=== PATIENT | male | born 1945 | race Caucasian/White ===

== ENCOUNTER 2024-11-13 17:50 | Emergency (ER) | payer MEDICARE, SELFPAY ==
[2024-11-13] VITALS (12 sets, daily range): BP systolic 129; BP diastolic 80; PULSE 70–93; RESP 32; TEMP 36.2; O2SAT 90–100; BMI 29.5
--- NOTE | 2024-11-13 18:24 | CRLHL7_ITS ---
For Patients: As a result of the Century Cures Act, medical imaging exams and procedure reports are released immediately into your electronic medical record. You may view this report before your referring provider. If you have questions, please contact your health care provider. INDICATION: lateral hip pain multiple falls, known prostate bone mets. TECHNIQUE: CT right hip without contrast. COMPARISON: None. FINDINGS: Bones: Diffuse heterogeneous sclerosis of all visualized bones, compatible with the reported metastatic disease. In the greater trochanter, there is a partial-thickness linear lucency extending from the anterior margin subjacent to the cortex. No other findings to suggest an acute fracture or traumatic subluxation. Joints: Moderate right hip joint arthrosis. Soft tissues: Within the right lateral gluteal glenn musculature there is moderate volume heterogeneous hyperdense material, compatible with blood products. IMPRESSION: 1. Thin linear lucency along the anterior margin of the right greater trochanter may reflect a minimally displaced acute cortical fracture. 2. Moderate volume intramuscular hematoma in the right lateral gluteus glenn musculature. Please note that all CT scans at this facility use dose modulation, iterative reconstruction, and/or weight-based dosing when appropriate to reduce radiation dose to as low as reasonably achievable. Dictated by Gonsalo Cutler MD @ 11/13/2024 8:16:23 PM (Electronically Signed)
--- NOTE | 2024-11-13 18:25 | CRLHL7_ITS ---
For Patients: As a result of the Century Cures Act, medical imaging exams and procedure reports are released immediately into your electronic medical record. You may view this report before your referring provider. If you have questions, please contact your health care provider. INDICATION: FALL, MULTIPLE FALLS, KNOWN PROSTATE BONE METS TECHNIQUE: Non-contrast CT of the head is submitted. COMPARISON: None. FINDINGS: Mild diffuse parenchymal volume loss with commensurate ex vacuo dilatation of the ventricles and sulci. There are nonspecific low attenuation white matter changes consistent with chronic microvascular disease. No sign of mass, hemorrhage, or midline shift. The visualized paranasal sinuses and mastoid air cells are essentially clear. The visualized orbits are grossly unremarkable. No skull fractures. Diffuse sclerosis of the skull base and visualized mandibles, compatible with the reported metastatic disease. IMPRESSION: No acute intracranial findings. Please note that all CT scans at this facility use dose modulation, iterative reconstruction, and/or weight-based dosing when appropriate to reduce radiation dose to as low as reasonably achievable. Dictated by Gonsalo Cutler MD @ 11/13/2024 8:07:12 PM (Electronically Signed)
--- NOTE | 2024-11-13 18:25 | CRLHL7_ITS ---
For Patients: As a result of the Century Cures Act, medical imaging exams and procedure reports are released immediately into your electronic medical record. You may view this report before your referring provider. If you have questions, please contact your health care provider. INDICATION: FALL, MULTIPLE FALLS, KNOWN PROSTATE BONE METS. TECHNIQUE: CT cervical spine without contrast. COMPARISON: None. FINDINGS: Vertebrae: No evident acute fracture or traumatic subluxation. Diffuse sclerosis throughout the entire cervical spine, compatible with the reported metastases. Discs and facet joints: There are diffuse degenerative changes in the disc spaces and facet joints. Extraspinal findings: No acute findings. Partially visualized heterogeneous left thyroid gland parenchyma with a hypodense nodule that measures at least 2.7 cm. IMPRESSION: 1. No sign of acute injury. 2. Diffuse bony sclerosis throughout the cervical vertebrae, compatible with the reported metastatic disease. 3. Multilevel degenerative spondylosis. Please note that all CT scans at this facility use dose modulation, iterative reconstruction, and/or weight-based dosing when appropriate to reduce radiation dose to as low as reasonably achievable. Dictated by Gonsalo Cutler MD @ 11/13/2024 8:02:58 PM (Electronically Signed)
--- NOTE | 2024-11-13 19:15 | ED_ITS ---
HPI - Fall General Date Seen: 11/13/24 Chief Complaint: Fall/Minor Trauma Stated Complaint: fell and hurt right hip Time Seen by Provider: 11/13/24 18:06 Source: patient and family Mode of arrival: ambulatory Limitations: no limitations History of Present Illness HPI Narrative: Patient is an 79-year-old male presenting to the emergency department with his daughter for right hip pain. He states he previously was walking normal up until his discharge from [facility] for sepsis on 10/26/2024. Since then he has fallen twice and has been requiring to use his walker whenever he w alks since his discharge. They initially tried to tell him to come in 1st time he fell but he refused. His last fall was about 1 week ago. The pain in his right hip has continued in due to that finally decided to come in. Does have a history of prostate cancer with metastasis to the bone but states the most recent CTs have shown no further involvement of the bone. Is on a blood thinner and does admit to hitting his head last week when he fell. Denies a headache, vision changes, weakness, numbness, chest pain, shortness of breath, abdominal pain. All his pain right now is in his right hip in the lateral aspect. No other concerns noted. Related Data Home Medications ?Medication ?Instructions ?Recorded ?Confirmed Citracal plus D 11/13/24 Lopressor 11/13/24 Senokot 11/13/24 Zofran 11/13/24 acetaminophen 11/13/24 amlodipine 11/13/24 aspirin 11/13/24 atorvastatin 11/13/24 bisacodyl 11/13/24 cholecalciferol (vitamin D3) 11/13/24 clopidogrel 11/13/24 folic acid 11/13/24 gabapentin 11/13/24 glipizide 11/13/24 metformin 11/13/24 paroxetine HCl 11/13/24 senna 11/13/24 tramadol 11/13/24 Allergies Allergy/AdvReac Type Severity Reaction Status Date / Time No Known Drug Allergies Allergy Verified 11/13/24 18:05 Review of Systems Status of ROS: Reports: 10 or more systems reviewed and unremarkable except as noted in History and below PFSH PFSH Social History How often do you have a drink containing alcohol: never AUDIT-C Alcohol total score: 0 Exam Narrative: Exam Narrative: Const: Well-nourished, Well-developed, in mild distress Eyes: PERRL, no conjunctival injection, and symmetrical lids HENT: Atraumatic external nose and ears. Moist mucous membranes. Neck: Symmetric, trachea midline, No thyromegaly. CVS: RRR, No murmurs or gallops. Peripheral pulses 2+ and equal in all extremities RESP: Unlabored respiratory effort. Clear to auscultation bilaterally. GI: Nontender/Nondistended, No rebound or guarding. MSK:Extremities w/o deformity, Normal Active ROM, tenderness to palpation of right hip at about the greater trochanter. Diffuse bruising noted to the right hip with tenderness associated with areas of bruising. No midline cervical tenderness Skin: Warm, Dry. No rashes or lesions. Neuro: Normal Muscle tone, No focal neurological deficits. Psych: Awake, Alert, & Oriented x3. Appropriate mood and affect. Const: Vital Signs, click to edit/add: Vital Signs - 24 hr 11/13/24 18:00 11/13/24 18:18 11/13/24 18:30 Temperature 97.2 F L Pulse Rate 87 82 Pulse Rate [Pulse Oximeter] 70 Respiratory Rate 32 H Blood Pressure [Ri ght Upper Arm] 129/80 Pulse Oximetry 98 90 99 Oxygen Delivery Me thod Room Air 11/13/24 18:45 11/13/24 19:01 11/13/24 19:16 Temperature Pulse Rate 83 92 84 Pulse Rate [Pulse Oximeter] Respiratory Rate Blood Pressure [Ri ght Upper Arm] Pulse Oximetry 100 99 96 Oxygen Delivery Me thod 11/13/24 19:30 11/13/24 19:45 11/13/24 20:00 Temperature Pulse Rate 91 88 84 Pulse Rate [Pulse Oximeter] Respiratory Rate Blood Pressure [Ri ght Upper Arm] Pulse Oximetry 98 96 96 Oxygen Delivery Me thod 11/13/24 20:15 Temperature Pulse Rate 83 Pulse Rate [Pulse Oximeter] Respiratory Rate Blood Pressure [Ri ght Upper Arm] Pulse Oximetry 100 Oxygen Delivery Me thod Course Vital Signs Vital signs: Initial Vital Signs Temperature 97.2 F L 11/13/24 18:00 Temperature Source Temporal Artery Scan 11/13/24 18:00 Pulse Rate 70 11/13/24 18:00 Respiratory Rate 32 H 04/22/25 18:00 Blood Pressure 129/80 11/13/24 18:00 Blood Pressure Mean 96 11/13/24 18:00 Blood Pressure Position Supine 11/13/24 18:00 Pulse Oximetry 98 11/13/24 18:00 Oxygen Delivery Method Room Air 11/13/24 18:00 Vital Signs Temperature 97.2 F L 11/13/24 18:00 Pulse Rate 70 11/13/24 18:00 Respiratory Rate 32 H 11/13/24 18:00 Blood Pressure 129/80 11/13/24 18:00 Pulse Oximetry 98 11/13/24 18:00 Oxygen Delivery Method Room Air 11/13/24 18:00 Temperature 97.2 F L 11/13/24 18:00 Pulse Rate 83 11/13/24 20:15 Respiratory Rate 32 H 11/13/24 18:00 Blood Pressure 129/80 11/13/24 18:00 Pulse Oximetry 100 11/13/24 20:15 Oxygen Delivery Method Room Air 11/13/24 18:00 MDM - Fall MDM Narrative Medical decision making narrative: Patient is an 79-year-old male presenting to the emergency department after a fall that occurred 1 week ago. Despite it occurring 1 week ago do think it is important do CT scan his head and cervical spine to make sure there are no occult injuries considering he is on blood thinners. They are agreeable to this. His right hip pain is right over the greater trochanter and could just be a bursitis but with his history of the bone Mets, despite no history a of it being in his hip, I do think it is beneficial do a CT scan to rule out any small fractures. They are agreeable to this plan. CT scan of neck and head showed no acute concerning abnormalities. They did see the bone Mets. CT scan hip shows a very faint lucency through where his pain is but could be a fracture. It is minimally displaced if there is a fracture. He is also having moderate volume intramuscular hematoma the right lateral gluteus glenn muscle. This does not seem to be bothering him as much as the hip. His daughter does state that the bruising has improved significantly. It is unlikely that is still actively bleeding. He can follow-up with orthopedics about this. I did speak to the on-call orthopedic provider and she is aware. For pain management I will provide him oxycodone but I did explain to him that it does increase his fall risk. Him and his daughter state they understand. He will be discharged. Imaging Data CT scan head: Attestation: I have reviewed the pertinent imaging results. Radiologist's impression: No acute intracranial findings. Please note that all CT scans at this facility use dose modulation, iterative reconstruction, and/or weight-based dosing when appropriate to reduce radiation dose to as low as reasonably achievable. Dictated by Gonsalo Cutler MD @ 11/13/2024 8:07:[address] scan cervical spine : Attestation: I have reviewed the pertinent imaging results. Radiologist's impression: 1. No sign of acute injury. 2. Diffuse bony sclerosis throughout the cervical vertebrae, compatible with the reported metastatic disease. 3. Multilevel degenerative spondylosis. Please note that all CT scans at this facility use dose modulation, iterative reconstruction, and/or weight-based dosing when appropriate to reduce radiation dose to as low as reasonably achievable. Dictated by Gonsalo Cutler MD @ 11/13/2024 8:02:[address] scan right hip: Attestation: I have reviewed the pertinent imaging results. Radiologist's impression: 1. Thin linear lucency along the anterior margin of the right greater trochanter may reflect a minimally displaced acute cortical fracture. 2. Moderate volume intramuscular hematoma in the right lateral gluteus glenn musculature. Please note that all CT scans at this facility use dose modulation, iterative reconstruction, and/or weight-based dosing when appropriate to reduce radiation dose to as low as reasonably achievable. Dictated by Gonsalo Cutler MD @ 11/13/2024 8:16:23 PM Discharge Plan Discharge Clinical Impression: Closed fracture of greater trochanter of right femur, Hematoma Patient Disposition: Home, Self-Care Condition: Stable Instructions: Hip Fracture (ED), Hematoma (ED) Additional Instructions: You can walk on your hip as tolerated. There does appear to be a small nondisplaced fracture that is nonsurgical. Follow-up with [facility]. Call them at . While taking the oxycodone make sure to get up slowly as it increases your fall risk. You can continue to take ibuprofen and Tylenol Activity Level: No Restrictions Prescriptions: No Action acetaminophen amlodipine aspirin atorvastatin bisacodyl Citracal plus D cholecalciferol (vitamin D3) clopidogrel folic acid gabapentin glipizide metformin Lopressor Zofran paroxetine HCl senna Senokot tramadol Follow Up/Referrals: Provider,Not a Local [Primary Care Provider] - Stand Alone Forms: [employer] Info Instructions
--- OUTSIDE RECORDS SUMMARY | 2024-11-13 19:30 | XMS_ITS | Clinical Summary ---
Author Organization [employer] [facility] Address [address] [place] [id number] Care Team Providers Care Communications Tower Technician Name Role Phone Sanya Padilla MD Primary Care Provider Emmanuelle Smith PsyD, LP Unavailable [phone] [facility] Unavailable Emmanuelle Soto BUTTON BREAKER Unavailable Daija Santillan MD Unavailable [phone] Adam, Александр Lockhart TRANSMISSION REPAIRER Unavailable [phone] Emily Souza Unavailable Dilcia Segal STAFF REGISTERED NURSE Unavailable Allergies No known active allergies Medications aspirin enteric coated 81 mg tabletIndicatio ns:myocardial infarction prevention Take 1 tablet by mouth once daily with a meal. 0 013 Active folic acid 1 mg tabletIndicatio ns:supplement Take 1 mg by mouth once daily. Active atorvastatin (LIPITOR) 40 mg tabletIndicatio ns:hyperlipidem ia Take 1 Tablet (40 mg) by mouth once daily. 90 Tablet 3 024 Active clopidogreL (PLAVIX) 75 mg tabletIndicatio ns:myocardial infarction prevention Take 1 Tablet (75 mg) by mouth once daily. 90 Tablet 3 024 Active metFORMIN (GLUCOPHAGE XR) 500 mg Extended-Releas e tabletIndicatio ns:type 2 diabetes mellitus TAKE 3 TABLETS BY MOUTH ONCE DAILY WITH EVENING MEAL 270 Tablet 1 Active glipiZIDE extended-releas e (GLUCOTROL XL) 2.5 mg Extended-Releas e tabletIndicatio ns:type 2 diabetes mellitus TAKE 1 TABLET BY MOUTH ONCE DAILY BEFORE A MEAL 90 Tablet Active metoprolol tartrate (LOPRESSOR) 50 mg tabletIndicatio ns:Benign essential HTN Take 0.5 Tablets (25 mg) by mouth two times daily. HOLD for SBP <120 or HR < 60 Active sennosides-docu sate (SENOKOT S) (8.6-50 mg) tabletIndicatio ns:Constipation , unspecified constipation type Take 2 Tablets by mouth 2 times daily if needed for Constipation. Active calcium citrate-vitamin D3, 315 mg-250 units, (Citracal + D) 315 mg-6.25 mcg (250 unit) tab tablet Take 1 Tablet by mouth two times daily with meals. Active ondansetron (ZOFRAN) 4 mg tablet Take 1 Tablet (4 mg) by mouth every 8 hours if needed for Nausea/Vomiting. Active cholecalciferol (Vitamin D) 1,000 unit capsule Take 1 Capsule (1,000 units) by mouth once daily. Active acetaminophen 500 mg tablet Take 2 Tablets (1,000 mg) by mouth two times daily. May also take daily PRN pain Max acetaminophen dose: 4000mg in 24 hrs. Active sennosides-docu sate (Senna-S) (8.6-50 mg) tablet Take 1 Tablet by mouth two times daily. May increase to 2 tabs if 1 is not effective Active bisacodyL 10 mg suppository Insert 1 Suppository (10 mg) rectally once daily if needed (constipation). Active amLODIPine 5 mg tablet Take 1 Tablet (5 mg) by mouth once daily. Active traMADoL 50 mg tabletIndicatio ns:Prostate cancer (HC),Cancer associated pain TAKE 1 TABLET BY MOUTH THREE TIMES DAILY NEEDED FOR PAIN 60 Tablet Active PARoxetine 10 mg tabletIndicatio ns:Anxiety Two oral daily for one week, then one daily for one week, then stop, or as directed otherwise. 30 Tablet 025 Active gabapentin 300 mg capsule One oral at bedtime, then stop 025 Active PARoxetine (PAXIL) 30 mg tabletIndicatio ns:anxiety with depression Take 1 Tablet (30 mg) by mouth once daily in the morning. 90 Tablet 3 024 2024 Discontinued(R eorder (E-cancel not sent)) predniSONE (DELTASONE) 5 mg tabletIndicatio ns:prostate cancer TAKE 1 TABLET BY MOUTH TWICE DAILY WITH MEALS 60 Tablet 5 025 2024 Discontinued(* Medication adjustment) abiraterone (ZYTIGA) 250 mg tabletIndicatio ns:Prostate cancer metastatic to bone (HC) Take 3 Tablets (750 mg) by mouth once daily. Take on an empty stomach. Do not eat food 2 hours before and 1 hour after taking the dose. Patient can take his own home meds. 025 2024 Discontinued(* Medication adjustment) traMADoL (ULTRAM) 50 mg tabletIndicatio ns:pain Take 1 Tablet (50 mg) by mouth 3 times daily if needed for Pain.Indications : pain 10 Tablet 025 2024 Discontinued gabapentin 300 mg capsule Take 600 mg by mouth at bedtime. 025 2024 Discontinued(* Medication adjustment) predniSONE 5 mg tabletIndicatio ns:prostate cancer Take 1 Tablet (5 mg) by mouth two times daily with meals. 60 Tablet 5 025 2024 Discontinued(* Med complete/Regim en complete/Level of care change) abiraterone 250 mg tabletIndicatio ns:Prostate cancer metastatic to bone (HC) Take 3 Tablets (750 mg) by mouth once daily. Take on an empty stomach. Do not eat food 2 hours before and 1 hour after taking the dose. Patient can take his own home meds. 025 2024 Discontinued(* Med complete/Regim en complete/Level of care change) Active Problems Problem Noted Date Diagnosed Date Metastatic prostate cancer 09/22/2024 Peripheral sensory neuropathy 01/09/2024 Anemia of unknown etiology 01/09/2024 Obesity 01/09/2024 Thrombocytopenia 01/09/2024 Type 2 diabetes mellitus wit h diabetic polyneuropathy, without long-term current use of insulin 01/09/2024 Stage 3a chronic kidney disease 01/09/2024 Vitamin D deficiency, unspecified 10/06/2023 Prostate cancer metastatic to bone 07/06/2023 Cancer Staging:Clinical:Stage IVB(pM1, PSA: 92.4) - Signed by Daija Santillan MD on 07/13/2023 Spinal stenosis of lumbar region 02/18/2022 Multilevel Spondylolisthesis of lumbar region DDD, lumbar w facet arthropathy 02/11/2022 CVD (cerebrovascular disease) 01/21/2017 CAD in [place] artery 01/21/2017 Anxiety 01/21/2017 Hyperlipidemia 02/27/2015 Essential hypertension, benign 11/30/2012 Resolved Problems Problem Noted Date Diagnosed Date Resolved Date Septic shock due to urinary tract infection 09/22/2024 11/01/2024 Demand ischemia 09/22/2024 11/01/2024 Type 2 diabetes mellitus wit h hyperglycemia, without long-term current use of insulin 09/22/2024 11/01/2024 Dehydration 08/24/2023 11/01/2024 Elevated alkaline phosphatase level 06/12/2023 01/09/2024 Overview (06/12/2023): May 2023: Hospital for influenza A / pneumonia, had Alkaline phosphatase over 2,000. Pneumonia due to influenza A virus 06/03/2023 01/09/2024 Sepsis 06/03/2023 01/09/2024 Cerebrovascular accident (CV A) due to other mechanism 02/25/2022 08/07/2024 Type 2 diabetes mellitus wit h hyperglycemia, without long-term current use of insulin 02/18/2020 11/01/2024 Toe pain, right 11/22/2018 01/09/2024 Severe obesity 01/21/2017 12/17/2021 Well controlled type 2 diabetes mellitus 08/02/2016 12/16/2020 Encounters Date Type Department Care Team Description 11/09/2024 2:00 PM CDT Patient Outreach [facility] Management - Advanced Care Team [address] [place] [address] Emily Souza Complex Care Management ([facility] Follow up) 11/09/2024 Telephone [facility] [address] [place] [address] Sanya Padilla MD Fall 11/08/2024 Telephone [facility] [address] [place] [address] Sanya Padilla MD Questions (Neurology Consult) 11/02/2024 Telephone [facility] [address] [place] [address] Sanya Padilla MD ORDERS NEEDED (Verbal ok) 11/01/2024 2:05 PM CDT Office Visit [facility] [address] [place] [address] Sanya Padilla MD Hospital F/U ([facility], 09/21/2024 - 10/12/2024, sepsis and weakness); Concerns (Discuss Post polio syndrome) 11/01/2024 Travel 10/26/2024 Telephone [facility] [address] [place] [address] Sanya Padilla MD Fall (I) 10/25/2024 11:00 AM CDT Patient Outreach [facility] Care Management - Advanced Care Team [address] [place] [address] Emily Souza Complex Care Management ([facility] Follow up) 10/24/2024 11:15 AM CDT Office Visit [facility] [address] [place] [address] Emmanuelle Soto, BUTTON BREAKER Follow Up (Prostate cancer metastatic to bone ) 10/24/2024 11:00 AM CDT - 10/24/2024 11:59 PM CDT Hospital Encounter [facility] [address] [place] [address] Vitamin D deficiency, unspecified (Primary Dx); Prostate cancer metastatic to bone (HC) 10/24/2024 Travel 10/22/2024 Patient Outreach [facility] - Advanced Care Team [address] [place] [address] Malka Clark LSW [facility] Social Work (Transition of Care) 10/22/2024 Refill [facility] [address] [place] [address] Emmanuelle Soto, BUTTON BREAKER Refill Request (Tramadol) 10/17/2024 11:00 AM CDT - 10/17/2024 11:59 PM CDT Hospital Encounter [facility] [address] [place] [address] Prostate cancer metastatic to bone (HC) 10/17/2024 Travel 10/14/2024 Orders Only [facility] [address] [place] [address] Emmanuelle Soto, BUTTON BREAKER <No scans attached> 10/12/2024 Telephone [facility] [address] [place] [address] Emmanuelle Soto, BUTTON BREAKER Appointment 10/11/2024 11:45 AM CDT Retirement [address] [address] Nighat Fermin V, JAGRUTI Transitional Care Visit 10/11/2024 Transcribe Orders [address] [address] Vishnu Alexander MD 10/10/[address] [phone] Daija Santillan MD Follow Up 10/08/2024 9:00 AM CDT Retirement [address] [address] Nighat Fermin V, JAGRUTI Transitional Care Visit 10/05/2024 Patient Outreach [facility] - Advanced Care Team [address] [place] [address] Malka Clark LSW [facility] Social Work (Initial Assessment) 10/05/2024 Travel 10/03/2024 Patient Outreach [facility] Care Management - Advanced Care Team [address] [place] [address] Malka Clark LSW [facility] Social Work ([facility] Initial Engagement [facility]) 10/02/2024 8:00 AM CDT Retirement [address] [address] Vishnu Alexander MD Transitional Care Visit (MD Admit) 10/02/2024 Lab Requisition [address] [address] Nighat Fermin V, BUTTON BREAKER 09/30/2024 Nurse Triage [address] [address] Nighat Fermin V, JAGRUTI Results (UA) 09/29/2024 Lab Requisition [address] [address] Nighat Fermin V, JAGRUTI 09/29/2024 Nurse Triage [address] [address] Nighat Fermin NP Transitional Care Visit (Vomiting ) 09/28/2024 Telephone [facility] [address] [place] [phone] Daija Santillan MD Medication Management 09/28/2024 Orders Only [facility] [address] [place] [address] Daija Santillan MD <No scans attached> 09/27/2024 10:30 AM [employer] DIV[employer] DIRECTOR Retirement [address] [address] Nighat Fermin NP Transitional Care Visit 09/27/2024 Lab Requisition [address] [address] Nighat Fermin V, BUTTON BREAKER 09/21/2024 7:01 PM UPLANDS DIVISION DIRECTOR - 09/26/2024 1:40 PM UPLANDS DIVISION DIRECTOR Hospital Encounter [facility] [address] [facility] [place] [address] Sanya Mcmillan MD Hospitalists, [facility] Daren Pretty MD Samimian, Pezhman, MD [place]ala, OCTAVIA Castrejon Hung C, MD Septic shock (HC) (Primary Dx); Acute cystitis without hematuria; Nausea and vomiting, unspecified vomiting type; Prostate cancer (HC); Prostate cancer metastatic to bone (HC); Benign essential HTN; Constipation, unspecified constipation type; Cancer associated pain Discharge Disposition: Care Home Facility 09/21/2024 Travel 08/31/2024 Refill [facility] [address] [place] [address] Sanya Padilla MD Refill Request (Glipizide Extended-release) 08/22/2024 Orders Only [facility] 200 [facility] [place] [phone] Daija Santillan MD <No scans attached> 08/17/2024 Refill [facility] 200 [facility] [phone] Daija Santillan MD Refill Request (Prednisone) from Last 3 Months Immunizations Immunization Administration Dates Next Due COVID-19 VACCINE SPIKEVAX (M ODERNA 50MCG/0.5ML) 12YO+ PFS 01/09/2024 COVID-19 vaccine (Pfizer-Bio NTech 30mcg/0.3mL) 12YO+ BIVALENT PF, MDV 01/04/2023 COVID-19 vaccine (Pfizer-Bio NTech 30mcg/0.3mL) 12YO+ JESSIE-SUCROSE PF, MDV 11/13/2021 COVID-19 vaccine (Pfizer-Bio NTech 30mcg/0.3mL) PF, MDV 10/09/2020,09/18/2020 Influenza Virus, Unspecified 05/20/2011 Influenza, High-dose Inactivated 05/12/2015,04/24 Influenza, High-dose Quadriv alent Inactivated 05/06/2023,05/13/2022,05/07/2021,2019 Influenza, IIV3 (Age >=3 years) 04/24/2013,06/08,05/10/2010 Influenza, Inactivated IIV3 (Age 65+ Years) Preserv Free 05/30/2019,05/26/2018,07/05/2017 Pneumococcal Conj 20-valent (Prevnar 20) 01/04/2023 Pneumococcal Poly,23-Valent (Pneumovax) 01/06/2010,11/10/2009 Pneumococcal conj 13-Valent (Prevnar 13) 11/07/2015 Td, Preservative Free (age > = 7 Years) 05/30/2019 Tdap 10/16/2009 Zoster (Shingrix-RZV, recombinant) 06/22/2021, Zoster (Zostavax-ZVL, live) 01/06/2010 Family History Medical History Relation Name Comments Other Father Aneurysm Maternal Grandfather brain Other Mother brain anyuersm Cancer Sister lung 53 Anesthesia Problem No Family History Cancer-colon No Family History Cancer-prostate No Family History Relation Name Status Comments Father Maternal Grandfather Mother Sister Social History Tobacco Use Types Packs/Day Years Used Date Smoking Tobacco: Former Cigarettes 1.5 13 0 07/25/1980 - 07/25/1993 Smokeless Tobacco: Never Tobacco Cessation:Counseling Given: No Alcohol Use Standard Drinks/Week Comments No 0 (1 standard drink = 0.6 oz pur e alcohol) PHQ-2 Answer Date Recorded PHQ-2 TOTAL SCORE 0 10/05/2024 Social Connections Answer Date Recorded Do you often feel lonely or isolated from those around you? 0 10/05/2024 Financial Resource Strain Answer Date R ecorded Difficulty of Paying Living Expenses 3 08/03/2024 Difficulty of Paying Living Expenses Not on file 08/03/2024 Food Insecurity Answer Date Recorded Do you worry your food will run out before you are able to buy more? 1 10/05/2024 Transportation Needs Answer Date Record ed Does lack of transportation keep you from medica l appointments? 1 10/05/2024 Does lack of transportation keep you from work, meetings or getting things that you need? 1 10/05/2024 Housing Stability Answer Date Recorded What is your housing situation today? 1 10/05/2024 Interpersonal Safety Answer Date Record ed Are you being hit, kicked, p ushed or yelled at (see row info)? No 09/21/2024 Interpersonal Safety Abuse 12 - 18 Not on file 09/21/2024 Interpersonal Safety Ambulatory Vulnerability No t on file 09/21/2024 Utilities Answer Date Recorded Do you have trouble paying f or utilities (for example, heat, electricity, water, phone)? 1 10/05/2024 Sex and Gender Information Value Date Recorded Sex Assigned at Male 06/17/2020 9:51 PM [employer] DIRECTOR Legal Sex Male 1:25 PM [employer] DIV[employer] DIRECTOR Gender Identity Male 06/17/2020 9:51 PM [employer] DIV[employer] DIRECTOR Sexual Orientation Straight 06/17/2020 9: 51 PM [employer] DIV[employer] DIRECTOR Obstetrics History Last Filed Vital Signs Vital Sign Reading Time Taken Comments Blood Pressure 130/64 11/01/2024 2:38 PM CDT Pulse 76 11/01/2024 2:38 PM CDT Temperature 36.3 C (97.3 F) 10/24/2024 11:08 AM CDT Respiratory Rate 18 10/24/2024 11:08 AM CDT Oxygen Saturation 94% 11/01/2024 2:38 PM CDT Inhaled Oxygen Concentration - - Weight 92.1 kg (203 lb) 11/01/2024 2:38 PM CDT Height 175.3 cm (5' 9) 09/21/2024 7:10 PM [employer] DIV[employer] DIRECTOR Body Mass Index 29.98 09/21/2024 7:10 PM U[employer] DIV[employer] DIRECTOR Plan of Treatment Upcoming Encounters Date Type Department Care Team (Late st Contact Info) Description 11/20/2024 8:45 AM CDT Ancillary Procedure [address] [address] 11/21/2024 10:00 AM CDT Appointment [facility] [address] [place] [address] 11/23/2024 9:45 AM CDT Office Visit [facility] [address] [place] [phone] Emmanuelle Soot, BUTTON BREAKER [address] [place] [address] 12/27/2024 1:00 PM CDT Orders Only [facility] [address] [facility] [place] [address] Lab, [place] 01/03/2025 1:00 PM CDT Office Visit [facility] [address] [place] [address] Neelam Barnard MD [address] [place] [address] 01/07/2025 2:05 PM CDT Office Visit [facility] [address] [place] [address] Sanya Padilla MD [address] [place] [address] 01/16/2025 12:30 PM CDT Appointment [facility] [address] [place] [address] Health Maintenance Due Date Last Done Comments RSV vaccine for adults or (1 - 1-dose 75+ series) 2019 COVID-19 vaccine series ( season) 2024 01/09/2024, 05/06/2023, 01/04/2023, Additional history exists BMI (ht and wt on same day) for age 18+ 01/08/2025 01/09/2024, 06/27/2023, 01/04/2023, Additional history exists Medicare Wellness for age 65+ 01/09/2025, 01/04/2023, 12/17/2021, Additional history exists Influenza Vaccine (Season Ended) 2025 05/30/2019, 05/26/2018, 07/05/2017, Additional history exists Depression screening for age 12+ 10/08/2025 10/08/2024, 10/05/2024, 01/10/2024, Additional history exists Tetanus booster 05/30/2029 05/30/2019, 09/23, 10/16/2009 Tdap Completed 10/16/2009 Zoster (shingles) series for age 50+ Completed 06/22/2021, 04/21/2021, 01/06/2010 Pneumococcal series for age 50+ Completed 01/04/2023, 11/07/2015, 01/06/2010, Additional history exists Procedures Procedure Name Priority Date/Time Associated Diagnosis Comments PSA TOTAL Today 10/17/2024 11:16 AM CDT Prostate cancer metastatic to bone (HC) COMP METABOLIC PANEL STAT 10/17/2024 11:16 AM CDT Prostate cancer metastatic to bone (HC) ONCOLOGY ABSOLUTE NEUTROPHIL COUNT STAT 10/17/2024 11:16 AM CDT Prostate cancer metastatic to bone (HC) CBC WITH AUTO DIFFERENTIAL Routine 10/02/2024 9:34 AM CDT Urinary tract infection, site not specified CBC WITH AUTO DIFFERENTIAL Routine 10/02/2024 9:34 AM CDT Urinary tract infection, site not specified URINALYSIS MICROSCOPIC Routine 09/29/2024 6:30 PM [employer] DIRECT[employer] Personal history of urinary (tract) infections URINE CULTURE Routine 09/29/2024 6:30 PM [employer] DIRECTOR Personal history of urinary (tract) infections UA W/ SEDIMENT EXAM REFLEXED PER CRITERIA Routine 09/29/2024 6:30 PM [employer] DIRECTOR Personal history of urinary (tract) infections QFT MITOGEN PERFORMABLE Routine 09/27/2024 9:45 AM [employer] DIRECTOR Hypokalemia Severe sepsis with septic shock (CODE) (HC) Sepsis, unspecified organism (HC) Encounter for screening for respiratory tuberculosis QFT TB2 PERFORMABLE Routine 09/27/2024 9 :45 AM [employer] DIRECTOR Hypokalemia Severe sepsis with septic shock (CODE) (HC) Sepsis, unspecified organism (HC) Encounter for screening for respiratory tuberculosis QFT TB1 PERFORMABLE Routine 09/27/2024 9 :45 AM [employer] DIRECTOR Hypokalemia Severe sepsis with septic shock (CODE) (HC) Sepsis, unspecified organism (HC) Encounter for screening for respiratory tuberculosis QUANTIFERON TB GOLD PLUS Routine 09/27/2024 9:45 AM [employer] DIV[employer] DIRECTOR Hypokalemia Severe sepsis with septic shock (CODE) (HC) Sepsis, unspecified organism (HC) Encounter for screening for respiratory tuberculosis BASIC METABOLIC PANEL Routine 09/27/2024 9:45 AM [employer] DIRECTOR Hypokalemia Severe sepsis with septic shock (CODE) (HC) Sepsis, unspecified organism (HC) Encounter for screening for respiratory tuberculosis CBC W PLT NO DIFF Routine 09/27/2024 9:4 5 AM [employer] DIRECTOR Hypokalemia Severe sepsis with septic shock (CODE) (HC) Sepsis, unspecified organism (HC) Encounter for screening for respiratory tuberculosis QUANTIFERON TB GOLD PLUS Routine 09/27/2024 9:45 AM [employer] DIRECTOR Hypokalemia Severe sepsis with septic shock (CODE) (HC) Sepsis, unspecified organism (HC) Encounter for screening for respiratory tuberculosis GLUCOSE METER Timed 09/26/2024 11:25 AM [employer] DIRECTOR GLUCOSE METER Timed 09/26/2024 7:39 AM [employer] DIRECTOR GLUCOSE METER Timed 09/25/2024 10:10 PM [employer] DIRECTOR GLUCOSE METER Timed 09/25/2024 6:23 PM [employer] DIRECTOR GLUCOSE METER Timed 09/25/2024 1:14 PM [employer] DIRECTOR GLUCOSE METER Timed 09/25/2024 8:43 AM [employer] DIRECTOR POTASSIUM Early AM 09/25/2024 7:50 AM [employer] DIRECTOR MAGNESIUM Early AM 09/25/2024 7:50 AM [employer] DIRECTOR PLATELET COUNT Timed 09/25/2024 7:50 AM [employer] DIV[employer] DIRECTOR GLUCOSE METER Timed 09/24/2024 9:22 PM [employer] DIV[employer] DIRECTOR GLUCOSE METER Timed 09/24/2024 6:45 PM [employer] DIRECTOR GLUCOSE METER Timed 09/24/2024 12:50 PM [employer] DIVISION DIRECTOR GLUCOSE METER Timed 09/24/2024 8:09 AM [employer] DIV[employer] DIRECTOR CREATININE MICHAEL 09/24/2024 7:23 AM [employer] DIRECTOR POTASSIUM Early AM 09/24/2024 7:23 AM [employer] DIV[employer] DIRECTOR MAGNESIUM Early AM 09/24/2024 7:23 AM U[employer] DIVISION DIRECTOR GLUCOSE METER Timed 09/23/2024 9:30 PM [employer] DIV[employer] DIRECTOR GLUCOSE METER Timed 09/23/2024 12:59 PM [employer] DIRECTOR HEMOGLOBIN Today 09/23/2024 7:43 AM [employer] DIRECTOR WHITE BLOOD COUNT Today 09/23/2024 7:4 3 AM [employer] DIRECTOR MAGNESIUM Early AM 09/23/2024 7:43 AM [employer] DIRECTOR POTASSIUM Early AM 09/23/2024 7:43 AM [employer] DIV[employer] DIRECTOR GLUCOSE METER Timed 09/23/2024 6:24 AM [employer] DIVISION DIRECTOR GLUCOSE METER Timed 09/23/2024 1:00 AM [employer] DIVISION DIRECTOR GLUCOSE METER Timed 09/22/2024 8:08 PM U[employer] DIVISION DIRECTOR MAGNESIUM Timed 09/22/2024 5:48 PM [employer] DIVISION DIRECTOR POTASSIUM Timed 09/22/2024 5:48 PM [employer] DIVISION DIRECTOR GLUCOSE METER Timed 09/22/2024 5:00 PM [employer] DIV[employer] DIRECTOR GLUCOSE METER Timed 09/22/2024 2:00 PM [employer] DIRECTOR LACTATE VENOUS STAT 09/22/2024 7:38 AM [employer] DIRECTOR WHITE BLOOD COUNT Early AM 09/22/2024 5:3 9 AM [employer] DIV[employer] DIRECTOR GLUCOSE, RANDOM Early AM 09/22/2024 5:39 AM [employer] DIRECTOR CREATININE Early AM 09/22/2024 5:39 AM [employer] DIV[employer] DIRECTOR MAGNESIUM Early AM 09/22/2024 5:39 AM [employer] DIRECTOR POTASSIUM Early AM 09/22/2024 5:39 AM [employer] DIRECTOR SODIUM Early AM 09/22/2024 5:39 AM [employer] DIRECTOR HEMOGLOBIN Early AM 09/22/2024 5:39 [address] [address] SPINE CERVICAL WO STAT 09/22/2024 1:54 AM [employer] DIRECTOR TROPONIN T (HS) ONE TIME Timed 09/22/2024 12:01 AM [employer] DIRECTOR LACTATE VENOUS STAT 09/22/2024 12:01 AM [employer] DIRECTOR URINE CULTURE MICHAEL 09/21/2024 10:03 PM [employer] DIRECTOR URINALYSIS MICROSCOPIC STAT 09/21/2024 10:03 PM [employer] DIRECTOR LACTATE VENOUS STAT 09/21/2024 10:03 PM [employer] DIRECTOR TROPONIN T (HS) ONE TIME Timed 09/21/2024 10:03 PM [employer] DIRECTOR UA W/ SEDIMENT EXAM REFLEXED PER CRITERIA STAT 09/21/2024 10:03 PM [employer] DIRECTOR BLOOD CULTURE STAT 09/21/2024 9:39 PM [employer] DIRECTOR BLOOD CULTURE STAT 09/21/2024 9:27 [address] [address] CHEST ABDOMEN PELVIS W STAT 09/21/2024 9:[address] [address] HEAD BRAIN WO STAT 09/21/2024 9:07 PM [employer] DIRECTOR LACTATE VENOUS STAT 09/21/2024 8:01 PM [employer] DIRECTOR EKG 12 LEAD STAT 09/21/2024 7:41 PM [employer] DIRECTOR CBC WITH AUTO DIFFERENTIAL STAT 09/21/2024 7:38 PM [employer] DIRECTOR COVID/FLU/RSV PANEL Today 09/21/2024 7 :38 PM [employer] DIRECTOR LIPASE STAT 09/21/2024 7:38 PM [employer] DIRECTOR PRO-BNP STAT 09/21/2024 7:38 PM [employer] DIRECTOR TROPONIN T (HS) ACUTE W/2HR REFLEX STAT 09/21/2024 7:38 PM [employer] DIRECT[employer] CK TOTAL STAT 09/21/2024 7:38 PM [employer] DIRECTOR HEPATIC FUNCTION PANEL STAT 09/21/2024 7:38 PM [employer] DIRECTOR BASIC METABOLIC PANEL STAT 09/21/2024 7:38 PM [employer] DIRECT[employer] CBC WITH AUTO DIFFERENTIAL STAT 09/21/2024 7:38 PM [employer] DIRECTOR from Last 3 Months Results * (ABNORMAL) ONCOLOGY ABSOLUTE NEUTROPHIL COUNT (10/17/2024 11:16 AM CDT) WHITE BLOOD COUNT 14.7(H) 4.5 - 11.0 thou/cu mm 10/17/2024 11:22 AM CDT [facility] RED BLOOD COUNT 4.42 4.30 - 5.90 mil/cu mm 10/17/2024 11:22 AM T [facility] HEMOGLOBIN 12.9(L) 13.5 - 17.5 g/dL 10/17/2024 11:22 AM [facility] HEMATOCRIT 41.8 37.0 - 53.0 % 10/17/2024 11:22 AM [facility] MCV 95 80 - 100 fL 10/17/2024 11:22 AM [facility] MCH 29.2 26.0 - 34.0 pg 10/17/2024 11:22 AM [facility] MCHC 30.9(L) 32.0 - 36.0 g/dL 10/17/2024 11:22 AM [facility] RDW 14.9 11.5 - 15.5 % 10/17/2024 11:22 AM [facility] PLATELET COUNT 375 140 - 440 thou/cu mm 10/17/2024 11:22 AM [facility] MPV 9.9 6.5 - 11.0 fL 10/17/2024 11:22 AM [facility] % NEUT 67.4 % 10/17/2024 11:22 AM [facility] % LYMPH 21.3 % 10/17/2024 11:22 AM [facility] % MONO 8.6 % 10/17/2024 11:22 AM [facility] % EOS 2.3 % 10/17/2024 11:22 AM [facility] % BASO 0.4 % 10/17/2024 11:22 AM [facility] ONCOLOGY ABSOLUTE NEUTROPHILS 9.9(H) 1.7 - 7.0 thou/cu mm 10/17/2024 11:22 AM [facility] ABSOLUTE LYMPHOCYTES 3.1(H) 0.9 - 2.9 thou/cu mm 10/17/2024 11:22 AM [facility] ABSOLUTE MONOCYTES 1.3(H) <0.9 thou/cu mm 10/17/2024 11:22 AM [facility] ABSOLUTE EOSINOPHILS 0.3 <0.5 thou/cu mm 10/17/2024 11:22 AM [facility] ABSOLUTE BASOPHILS 0.1 <0.3 thou/cu mm 10/17/2024 11:22 AM CDT [facility] NRBC 10/17/2024 11:22 AM CDT [facility] ABS NRBC 10/17/2024 11:22 AM CDT [facility] Blood BLOOD SPECIMEN / Unknown Venipuncture / Unknown 10/17/2024 11:16 AM CDT 10/17/2024 11:17 AM CDT Narrative [facility] - 10/17/2024 11:22 AM CDT Includes CBC and differential. Daija Santillan MD HEMATOLOGY Final Resu lt Performing Organization Address City/[facility]/ZIP Co de Phone Number [facility] [address] [place] [address] * PSA TOTAL (10/17/2024 11:16 AM CDT) PSA TOTAL 0.22 <4.00 ng/mL 10/17/2024 11:47 PM CDT [facility] Blood BLOOD SPECIMEN / Unknown Venipuncture / Unknown 10/17/2024 11:16 AM CDT 10/17/2024 11:17 AM CDT Narrative [facility] - 10/17/2024 11:47 PM CDT The test method changed on 01/18/2023. If this test has been used for serial monitoring, rebaselining is recommended. Rebaselining consists of 2 measurements, collected 3-6 weeks apart. The [employer] Ele[employer]ys total PSA assay is an electrochemiluminescence immunoassay ECLIA performed on the Yoel Jose e immunoassay analyzers. Values obtained with different assay methods may be different and cannot be used interchangeably. us Daija Santillan MD CHEMISTRY Final Resu lt Performing Organization Address City/[facility]/ZIP Co de Phone Number [facility] [address] [place] [address], [place] * (ABNORMAL) COMP METABOLIC PANEL (10/17/2024 11:16 AM CDT) SODIUM 140 136 - 145 mmol/L 10/17/2024 11:36 AM [facility] POTASSIUM 3.7 3.5 - 5.1 mmol/L 10/17/2024 11:36 AM [facility] CHLORIDE 98 98 - 107 mmol/L 10/17/2024 11:36 AM [facility] CO2,TOTAL 26 22 - 29 mmol/L 10/17/2024 11:36 AM [facility] ANION GAP 16 5 - 18 10/17/2024 11:36 AM [facility] GLUCOSE 208(H) 70 - 99 mg/dL 10/17/2024 11:36 AM [facility] CALCIUM 10.0 8.8 - 10.4 mg/dL 10/17/2024 11:36 AM [facility] Comment: Reference ranges for this test were updated on 05/29/2024 to reflect our healthy population more accurately. Reference range changes are not retroactively applied to results, but previous results using the same methodology can be interpreted in the context of the new reference range. BUN 23 8 - 23 mg/dL 10/17/2024 11:36 AM [facility] CREATININE 1.05 0.70 - 1.20 mg/dL 10/17/2024 11:36 AM [facility] BUN/CREAT RATIO 22(H) 10 - 20 11:36 AM [facility] eGFR 72(L) >90 mL/min/1. 73m2 10/17/2024 11:36 AM [facility] Comment:As of 2021, eG FR is calculated by the CKD-EPI creatinine equation without race adjustment. eGFR can be influenced by muscle mass, exercise, and diet. The reported eGFR is an estimation only and is only applicable if the renal function is stable. ALBUMIN 3.9(L) 4.0 - 4.9 g/dL 10/17/2024 11:36 AM [facility] PROTEIN,TOTAL 7.1 6.0 - 8.0 g/dL 10/17/2024 11:36 AM CDT [facility] BILIRUBIN,TOTAL 0.4 0.0 - 1.2 mg/dL 10/17/2024 11:36 AM CDT [facility] ALK PHOSPHATASE 68 40 - 129 IU/L 10/17/2024 11:36 AM CDT [facility] ALT (SGPT) 15 10 - 50 IU/L 10/17/2024 11:36 AM CDT [facility] AST (SGOT) 16 10 - 50 IU/L 10/17/2024 11:36 AM CDT [facility] Blood BLOOD SPECIMEN / Unknown Venipuncture / Unknown 10/17/2024 11:16 AM CDT 10/17/2024 11:17 AM CDT us Daija Santillan MD CHEMISTRY Final Resu lt [facility] [address] [place] [address] * (ABNORMAL) CBC WITH AUTO DIFFERENTIAL (10/02/2024 9:34 AM CDT) Only the most recent of2 resultswithin the time period is included. WHITE BLOOD COUNT 15.2(H) 4.5 - 11.0 thou/cu mm 10/02/2024 10:17 AM CDT [facility] RED BLOOD COUNT 4.43 4.30 - 5.90 mil/cu mm 10/02/2024 10:17 AM CDT [facility] HEMOGLOBIN 13.3(L) 13.5 - 17.5 g/dL 10/02/2024 10:17 AM CDT [facility] HEMATOCRIT 40.7 37.0 - 53.0 % 10/02/2024 10:17 AM CDT [facility] MCV 92 80 - 100 fL 10/02/2024 10:17 AM CDT [facility] MCH 30.0 26.0 - 34.0 pg 10/02/2024 10:17 AM CDT [facility] MCHC 32.7 32.0 - 36.0 g/dL 10/02/2024 10:17 AM CDT [facility] RDW 14.6 11.5 - 15.5 % 10/02/2024 10:17 AM CDT [facility] PLATELET COUNT 415 140 - 440 thou/cu mm 10/02/2024 10:17 AM CDT [facility] MPV 10.1 6.5 - 11.0 fL 10/02/2024 10:17 AM CDT [facility] NRBC 0.0 % 10/02/2024 10:17 AM CDT [facility] ABS NRBC 0.0 thou /cu mm 10/02/2024 10:17 AM CDT [facility] % NEUT 58.1 % 10/02/2024 10:17 AM CDT [facility] % LYMPH 31.4 % 10/02/2024 10:17 AM CDT [facility] % MONO 6.4 % 10/02/2024 10:17 AM T [facility] % EOS 2.5 % 10/02/2024 10:17 AM CDT [facility] % BASO 0.7 % 10/02/2024 10:17 AM CDT [facility] % IMMATURE GRAN (METAS,MYELOS,MI OS) 0.9 % 10/02/2024 10:17 AM CDT [facility] ABSOLUTE NEUTROPHILS 8.8(H) 1.7 - 7.0 thou/cu mm 10/02/2024 10:17 AM CDT [facility] ABSOLUTE LYMPHOCYTES 4.8(H) 0.9 - 2.9 thou/cu mm 10/02/2024 10:17 AM CDT [facility] ABSOLUTE MONOCYTES 1.0(H) <0.9 thou/cu mm 10/02/2024 10:17 AM CDT [facility] ABSOLUTE EOSINOPHILS 0.4 <0.5 thou/cu mm 10/02/2024 10:17 AM CDT [facility] ABSOLUTE BASOPHILS 0.1 <0.3 thou/cu mm 10/02/2024 10:17 AM CDT [facility] ABSOLUTE IMMATURE GRANULOCYTES(MET ,MYELOS,PROS) 0.1 <0.3 thou/cu mm 10/02/2024 10:17 AM CDT [facility] Blood BLOOD SPECIMEN / Unknown Venipuncture / Unknown 10/02/2024 9:34 AM CDT 10/02/2024 10:10 AM CDT us Nighat Hartman NP HEMATOLOGY Final Resul t Performing Organization Address [facility] de Phone Number [address] [address] * (ABNORMAL) URINALYSIS MICROSCOPIC (09/29/2024 6:30 PM [employer]) Only the most recent of2 resultswithin the time period is included. RBC None Seen 0-2, None Seen /HPF 09/29/2024 7:22 PM [employer] [facility] WBC 3-5 0-2, 3-5, None Seen /HPF 09/29/2024 7:22 PM [employer] [facility] BACTERIA Moderate(A) None Seen, Rare, Few Bacteria/ HPF 09/29/2024 7:22 PM [employer] [facility] EPITHELIAL CELLS Few None Seen, Few Epi/HPF 09/29/2024 7:22 PM [employer] [facility] Mucus Present 09/29/2024 7:22 PM [employer] [facility] Urine URINE SPECIMEN / Unknown Client Collect / Unknown 09/29/2024 6:30 PM [employer] 09/29/2024 7:13 PM [employer] us Nighat Hartman NP URINE Final Resul t Performing Organization Address [facility] de Phone Number [address] [address] * URINE CULTURE (09/29/2024 6:30 PM [employer]) Only the most recent of2 resultswithin the time period is included. CULTURE No growth (<1,000 CFU/mL) 09/30/2024 7:55 PM CDT [facility] Urine URINE SPECIMEN / Unknown Client Collect / Unknown 09/29/2024 6:30 PM [employer] 09/29/2024 7:13 PM [employer] us Nighat Hartman NP MICROBIOLOGY Final Resul t Performing Organization Address City/State/ZIP Co oh Phone Number [facility] [address] [place] [address], [place] * (ABNORMAL) UA W/ SEDIMENT EXAM REFLEXED PER CRITERIA (09/29/2024 6:30 PM [employer]) Only the most recent of2 resultswithin the time period is included. COLOR Yellow Yellow Color 09/29/2024 7:17 PM [employer] [facility] CLARITY Clear Clear Clarity 09/29/2024 7:17 PM [employer] [facility] SPECIFIC GRAVITY,URINE 1.025 1.010, 1.015, 1.020, 1.025 09/29/2024 7:17 PM [facility] PH,URINE 6.0 6.0, 7.0, 8.0, 5.5, 6.5, 7.5, 8.5 09/29/2024 7:17 PM [facility] UROBILINOGEN,Q UALITATIVE Normal Normal EU/dl 09/29/2024 7:17 PM [employer] [facility] PROTEIN, URINE 30(A) Negative mg/dL 09/29/2024 7:17 PM [facility] GLUCOSE, URINE Negative Negative mg/dL 09/29/2024 7:17 PM [facility] KETONES,URINE Negative Negative mg/dL 09/29/2024 7:17 PM [facility] BILIRUBIN,URIN E Negative Negative 09/29/2024 7:17 PM [facility] OCCULT BLOOD,URINE Negative Negative 09/29/2024 7:17 PM [employer] [facility] NITRITE Negative Negative 09/29/2024 7:17 PM [employer] [facility] LEUKOCYTE ESTERASE Negative Negative 09/29/2024 7:17 PM [facility] Urine URINE SPECIMEN / Unknown Client Collect / Unknown 09/29/2024 6:30 PM [employer] 09/29/2024 7:13 PM [employer] Nighat Hartman NP URINE Final Resul t [address] [address] * QFT MITOGEN PERFORMABLE (09/27/2024 9:45 AM [employer]) MITOGEN 1.15 IU/mL 10/01/2024 9:56 AM CDT [facility] Blood BLOOD SPECIMEN / Unknown Venipuncture / Unknown 09/27/2024 9:45 AM [employer] 09/27/2024 2:14 PM [employer] Nighat Hartman NP CHEMISTRY Final Resul t Performing Organization Address City/[facility] Co de Phone Number [facility] [address] [address], [place] * QFT TB2 PERFORMABLE (09/27/2024 9:45 AM [employer]) TB2 0.03 IU/mL 10/01/2024 9:56 AM CDT [facility] Blood BLOOD SPECIMEN / Unknown Venipuncture / Unknown 09/27/2024 9:45 AM [employer] 09/27/2024 2:15 PM [employer] Nighat Hartman NP CHEMISTRY Final Resul t Performing Organization Address [facility] Co de Phone Number [facility] [address] [address], [place] * QFT TB1 PERFORMABLE (09/27/2024 9:45 AM [employer]) TB1 0.03 IU/mL 10/01/2024 9:55 AM CDT [facility] Blood BLOOD SPECIMEN / Unknown Venipuncture / Unknown 09/27/2024 9:45 AM [employer] 09/27/2024 2:15 PM [employer] Nighat Fermin V [employer] CHEMISTRY Final Resul t Performing Organization Address City/[facility]/ZIP Co de Phone Number [facility] [address] [place] [address], * QUANTIFERON TB GOLD PLUS (09/27/2024 9:45 AM [employer]) QFTP NIL 0.03 10/01/2024 11:29 AM CDT [facility] TB1 0.03 IU/mL 10/01/2024 11:29 AM CDT [facility] TB2 0.03 IU/mL 10/01/2024 11:29 AM CDT [facility] MITOGEN 1.15 IU/mL 10/01/2024 11:29 AM CDT [facility] QFTP TB AG1 - NIL 0.00 025 11:29 AM CDT [facility] TB1-NIL % OF NIL 0 % 10/02/19 25 11:29 AM CDT [facility] QFTP TB AG2 - NIL 0.00 025 11:29 AM CDT [facility] TB2-NIL % OF NIL 0 % 10/02/19 25 11:29 AM CDT [facility] QFTP MITOGEN - NIL 1.12 2024 11:29 AM CDT [facility] QFTP QUANTIFERON INTERPRETATION Negative Negative 10/01/2024 11:29 AM CDT [facility] Blood BLOOD SPECIMEN / Unknown Venipuncture / Unknown 09/27/2024 9:45 AM [employer] 09/27/2024 2:15 PM [employer] [facility] - 10/01/2024 11:29 AM CDT M. tuberculosis infection not likely, but cannot be excluded in cases of immunosuppression. CAUTION: The performance of QuantiFERON-TB Gold Plus has not been evaluated in specimens from: - Individuals with impaired or altered immune factors (HIV infections, transplant patients, those receieving immunosuppressive drugs such as corticosteroids) and those with other clinical conditions (e.g., diabetes, hematological disorders). - Individuals younger than 17 years old. Refer to CDC website for testing recommendations in children 6-17 years old. - women Nighat Hartman NP CHEMISTRY Final Resul t [facility] [address] [place] [address], * (ABNORMAL) CBC W PLT NO DIFF (09/27/2024 9:45 AM [employer]) WHITE BLOOD COUNT 17.1(H) 4.5 - 11.0 thou/cu mm 09/27/2024 11:28 AM [employer] [facility] RED BLOOD COUNT 4.40 4.30 - 5.90 mil/cu mm 09/27/2024 11:28 AM [facility] HEMOGLOBIN 13.0(L) 13.5 - 17.5 g/dL 09/27/2024 11:28 AM [facility] HEMATOCRIT 41.1 37.0 - 53.0 % 09/27/2024 11:28 AM [facility] MCV 93 80 - 100 fL 09/27/2024 11:28 AM [facility] MCH 29.5 26.0 - 34.0 pg 09/27/2024 11:28 AM [facility] MCHC 31.6(L) 32.0 - 36.0 g/dL 09/27/2024 11:28 AM [facility] RDW 14.7 11.5 - 15.5 % 09/27/2024 11:28 AM [facility] PLATELET COUNT 377 140 - 440 thou/cu mm 09/27/2024 11:28 AM [facility] MPV 10.2 6.5 - 11.0 fL 09/27/2024 11:28 AM [facility] NRBC 0.0 % 09/27/2024 11:28 AM [employer] [facility] ABS NRBC 0.0 thou /cu mm 09/27/2024 11:28 AM [facility] Blood BLOOD SPECIMEN / Unknown Venipuncture / Unknown 09/27/2024 9:45 AM [employer] 09/27/2024 11:24 AM [employer] Nighat Fermin V, JAGRUTI HEMATOLOGY Final Resul t [facility] [address] [place] [address] * (ABNORMAL) BASIC METABOLIC PANEL (09/27/2024 9:45 AM [employer]) Only the most recent of2 resultswithin the time period is included. SODIUM 136 136 - 145 mmol/L 09/27/2024 11:48 AM [employer] [facility] POTASSIUM 4.0 3.5 - 5.1 mmol/L 09/27/2024 11:48 AM [facility] CHLORIDE 101 98 - 107 mmol/L 09/27/2024 11:48 AM [facility] CO2,TOTAL 24 22 - 29 mmol/L 09/27/2024 11:48 AM [facility] ANION GAP 11 5 - 18 09/27/2024 11:48 AM [facility] GLUCOSE 185(H) 70 - 99 mg/dL 09/27/2024 11:48 AM [facility] CALCIUM 10.1 8.8 - 10.4 mg/dL 09/27/2024 11:48 AM [facility] Comment: Reference ranges for this test were updated on 05/29/2024 to reflect our healthy population more accurately. Reference range changes are not retroactively applied to results, but previous results using the same methodology can be interpreted in the context of the new reference range. BUN 32(H) 8 - 23 mg/dL 09/27/2024 11:48 AM [facility] CREATININE 0.99 0.70 - 1.20 mg/dL 09/27/2024 11:48 AM [facility] BUN/CREAT RATIO 32(H) 10 - 20 11:48 AM [facility] eGFR 77(L) >90 mL/min/1.7 3m2 09/27/2024 11:48 AM [facility] Comment:As of 2021, eG FR is calculated by the CKD-EPI creatinine equation without race adjustment. eGFR can be influenced by muscle mass, exercise, and diet. The reported eGFR is an estimation only and is only applicable if the renal function is stable. Blood BLOOD SPECIMEN / Unknown Venipuncture / Unknown 09/27/2024 9:45 AM [employer] 09/27/2024 11:24 AM [employer] us Nighat Hartman NP CHEMISTRY Final Resul t Performing Organization Address [facility] de Phone Number [address] [address] * (ABNORMAL) GLUCOSE METER (09/26/2024 11:25 AM [employer]) Only the most recent of17 resultswithin the time period is included. GLUCOSE METER 161(H) 65 - 100 mg/dL 09/26/2024 11:32 AM [employer] [facility] Blood BLOOD SPECIMEN / Unknown 09/26/2024 11:25 AM [employer] 09/26/2024 11:32 AM [employer] us Seymour Hamilton MD CHEMISTRY Final Result Performing Organization Address [facility] de Phone Number [address] [address] * PLATELET COUNT (09/25/2024 7:50 AM [employer]) PLATELET COUNT 309 140 - 440 thou/cu mm 09/25/2024 8:16 AM [employer] [facility] MPV 10.3 6.5 - 11.0 fL 09/25/2024 8:16 AM [employer] [facility] Blood BLOOD SPECIMEN / Unknown Butterfly / Unknown 09/25/2024 7:50 AM [employer] 09/25/2024 8:10 AM [employer] us August Gutierrez MD HEMATOLOGY Final Result Performing Organization Address [facility] de Phone Number [address] [address] * POTASSIUM (09/25/2024 7:50 AM [employer]) Only the most recent of5 resultswithin the time period is included. POTASSIUM 4.3 3.5 - 5.1 mmol/L 09/25/2024 8:38 AM [employer] [facility] Blood BLOOD SPECIMEN / Unknown Butterfly / Unknown 09/25/2024 7:50 AM [employer] 09/25/2024 8:10 AM [employer] [facility] Santiago Orozco [facility] CHEMISTRY Final Res ult Performing Organization Address [facility] Co de Phone Number [address] [address] * MAGNESIUM (09/25/2024 7:50 AM [employer]) Only the most recent of5 resultswithin the time period is included. MAGNESIUM 1.8 1.6 - 2.4 mg/dL 09/25/2024 8:38 AM [employer] [facility] Blood BLOOD SPECIMEN / Unknown Butterfly / Unknown 09/25/2024 7:50 AM [employer] 09/25/2024 8:10 AM [employer] [facility] Aggarwalsilvest[facility] CHEMISTRY Final Res ult Performing Organization Address [facility] de Phone Number [address] [address] * (ABNORMAL) CREATININE (09/24/2024 7:23 AM [employer]) Only the most recent of2 resultswithin the time period is included. eGFR 83(L) >90 mL/min/1.7 3m2 09/24/2024 1:17 PM [employer] [facility] Comment:As of 2021, eG FR is calculated by the CKD-EPI creatinine equation without race adjustment. eGFR can be influenced by muscle mass, exercise, and diet. The reported eGFR is an estimation only and is only applicable if the renal function is stable. CREATININE 0.93 0.70 - 1.20 mg/dL 09/24/2024 1:17 PM [employer] [facility] Blood BLOOD SPECIMEN / Unknown Venipuncture / Unknown 09/24/2024 7:23 AM [employer] 09/24/2024 7:41 AM [employer] Dean DUDLEY CHEMISTRY Final Res ult Performing Organization Address City/[facility]/ZIP Co de Phone Number [address] [address] * (ABNORMAL) WHITE BLOOD COUNT (09/23/2024 7:43 AM [employer]) Only the most recent of2 resultswithin the time period is included. WHITE BLOOD COUNT 11.4(H) 4.5 - 11.0 thou/cu mm 09/23/2024 8:19 AM [employer] [facility] NRBC 0.0 % 09/23/2024 8:19 AM [employer] [facility] ABS NRBC 0.0 thou /cu mm 09/23/2024 8:19 AM [employer] [facility] Blood BLOOD SPECIMEN / Unknown Butterfly / Unknown 09/23/2024 7:43 AM [employer] 09/23/2024 7:54 AM [employer] August Gutierrez MD HEMATOLOGY Final Result Performing Organization Address [facility] Co de Phone Number [address] [address] * (ABNORMAL) HEMOGLOBIN (09/23/2024 7:43 AM [employer]) Only the most recent of2 resultswithin the time period is included. HEMOGLOBIN 13.3(L) 13.5 - 17.5 g/dL 09/23/2024 8:19 AM [employer] [facility] MCV 93 80 - 100 fL 09/23/2024 8:19 AM [employer] [facility] Blood BLOOD SPECIMEN / Unknown Butterfly / Unknown 09/23/2024 7:43 AM [employer] 09/23/2024 7:54 AM [employer] August Gutierrez MD HEMATOLOGY Final Result Performing Organization Address City/[facility]/ZIP Co de Phone Number [address] [address] * LACTATE VENOUS (09/22/2024 7:38 AM [employer]) Only the most recent of4 resultswithin the time period is included. LACTATE,VENOUS 1.6 0.5 - 2.0 mmol/L 09/22/2024 8:19 AM [employer] [facility] Blood BLOOD SPECIMEN / Unknown Non-Lab Butterfly / Unknown 09/22/2024 7:38 AM [employer] 09/22/2024 7:44 AM [employer] Daren Pretty MD CHEMISTRY Final Result Performing Organization Address [facility] Co de Phone Number [address] [phone] * GLUCOSE, RANDOM (09/22/2024 5:39 AM [employer]) GLUCOSE,RANDOM 89 70 - 139 mg/dL 09/22/2024 6:08 AM [employer] [facility] Blood BLOOD SPECIMEN / Unknown Line/Port / Unknown 09/22/2024 5:39 AM [employer] 09/22/2024 5:43 AM [employer] Daren Pretty MD CHEMISTRY Final Result Performing Organization Address [facility] Co de Phone Number [address] [address] * SODIUM (09/22/2024 5:39 AM [employer]) SODIUM 137 136 - 145 mmol/L 09/22/2024 6:08 AM [employer] [facility] Blood BLOOD SPECIMEN / Unknown Line/Port / Unknown 09/22/2024 5:39 AM [employer] 09/22/2024 5:43 AM [employer] Daren Pretty MD CHEMISTRY Final Result Performing Organization Address [facility] Co de Phone Number [address] [phone] * CT SPINE CERVICAL WO (09/22/2024 1:54 AM [employer]) Anatomical Region Laterality Modality CERVICAL SPINE, NECK, Spine Comp uted Tomography 09/22/2024 2:00 AM [employer] Impressions 09/22/2024 2:00 AM [employer] No acute cervical spine abnormality. Diffuse sclerotic osseous metastatic disease. Please note that all CT scans at this facility use dose modulation, iterative reconstruction, and/or weight-based dosing when appropriate to reduce radiation dose to as low as reasonably achievable. Dictated by Bubba Presley MD @ 09/22/2024 2:00:12 AM (Electronically Signed) Narrative 09/22/2024 2:00 AM [employer] DIRECTOR For Patients: As a result of the Cures Act, medical imaging exams and procedure reports are released immediately into your electronic medical record. You may view this report before your referring provider. If you have questions, please contact your health care provider. INDICATION: Trauma. TECHNIQUE: CT cervical spine without contrast. COMPARISON: None. FINDINGS: No acute fracture. Diffuse sclerotic osseous metastatic disease. The cervical vertebral bodies maintain their normal heights with preserved lordosis. There is mild retrolisthesis at C4-C5. Multilevel spondylosis and degenerative disc disease is evident with endplate osteophyte formation and multifocal disc space height loss. Paraspinal soft tissues are grossly within normal limits. Please refer to same- day CT of the chest abdomen and pelvis for discussion of intrathoracic contents. Procedure Note Bubba Presley MD - 09/22/2024 For Patients: As a result of the Cures Act, medical imagingexams and procedure reports are released immediately into your electronicmedical record. You may view this report before your referring provider.If you have questions, please contact your health care provider. INDICATION: Trauma. TECHNIQUE: CT cervical spine without contrast. COMPARISON: None. FINDINGS: No acute fracture. Diffuse sclerotic osseous metastatic disease. The cervical vertebral bodies maintain their normal heights with preservedlordosis. There is mild retrolisthesis at C4-C5. Multilevel spondylosisand degenerative disc disease is evident with endplate osteophyteformation and multifocal disc space height loss. Paraspinal soft tissues are grossly within normal limits. Please refer tosame- day CT of the chest abdomen and pelvis for discussion ofintrathoracic contents. IMPRESSION: No acute cervical spine abnormality. Diffuse sclerotic osseous metastaticdisease. Please note that all CT scans at this facility use dose modulation,iterative reconstruction, and/or weight-based dosing when appropriate toreduce radiation dose to as low as reasonably achievable. Dictated by Bubba Presley MD @ 09/22/2024 2:00:12 AM (Electronically Signed) Sanya Mcmillan MD CT Final Re sult * (ABNORMAL) TROPONIN T (HS) ONE TIME (09/22/2024 12:01 AM [employer] DIRECT[employer]) Only the most recent of2 resultswithin the time period is included. TROPONIN T HS 33(H) 6-15 ng/L ng/L 09/22/2024 12:59 AM [employer] DIRECTOR [facility] Blood BLOOD SPECIMEN / Unknown Non-Lab Venipuncture / Unknown 09/22/2024 12:01 AM [employer] DIRECTOR 09/22/2024 12:07 AM [employer] DIRECTOR Sanya Mcmillan MD CHEMISTRY Final Re sult Performing Organization Address City/[facility] Co de Phone Number [address] [address] * BLOOD CULTURE X2 (09/21/2024 9:39 PM [employer] DIRECTOR) Only the most recent of2 resultswithin the time period is included. [facility] CULTURE No Growth. 09/26/2024 9:55 PM [employer] DIRECTOR [facility] Blood BLOOD SPECIMEN / Unknown Non-Lab Venipuncture / Unknown 09/21/2024 9:39 PM [employer] DIRECTOR 09/21/2024 9:44 PM [employer] DIRECTOR Narrative [facility] - 09/26/2024 9:55 PM [employer] DIRECTOR Low volume blood culture received; possible false negative culture. Sanya Mcmillan MD MICROBIOLOGY Final Re sult Performing Organization Address City/[facility] Co de Phone Number [address] [address] * CT CHEST ABDOMEN PELVIS W (09/21/2024 9:08 PM [employer] DIRECTOR) Anatomical Region Laterality Modality Abdomen, Pelvis, AORTA, LIVER, SPLEEN, CHEST Computed Tomography 09/21/2024 9:28 PM [employer] DIRECTOR Impressions 09/21/2024 9:28 PM [employer] DIRECTOR 1. No acute intrathoracic or intra-abdominal/pelvic pathology identified. 2. Cholelithiasis without CT evidence of acute cholecystitis. Unchanged nonspecific nodular appearance of the gallbladder fundus. 3. Colonic diverticulosis without acute diverticulitis. 4. Diffuse osseous metastatic disease with increased sclerosis compared to prior. 5. Left thyroid nodule measuring 2.8 cm, grossly unchanged. Further characterization with outpatient thyroid ultrasound recommended if not performed previously. Please note that all CT scans at this facility use dose modulation, iterative reconstruction, and/or weight-based dosing when appropriate to reduce radiation dose to as low as reasonably achievable. Dictated by Bubba Presley MD @ 09/21/2024 9:28:42 PM (Electronically Signed) Narrative 09/21/2024 9:28 PM [employer] DIRECTOR For Patients: As a result of the Cures Act, medical imaging exams and procedure reports are released immediately into your electronic medical record. You may view this report before your referring provider. If you have questions, please contact your health care provider. INDICATION: Vomiting, weakness, cough. History of prostate cancer. TECHNIQUE: CT chest, abdomen and pelvis acquired 80 cc Omnipaque 350 IV contrast. COMPARISON: CT chest abdomen pelvis 06/15/2023. FINDINGS: CHEST: Cardiovascular structures: No cardiomegaly or pericardial effusion. Main pulmonary artery normal in caliber. No obvious pulmonary embolism on this nondedicated examination. Atherosclerotic calcifications of the aorta and its major branches. No thoracic aortic aneurysm. Mediastinum and cesar: No suspicious lymphadenopathy. Left thyroid nodule measuring 2.8 cm is similar to prior. Lungs and pleura: Interstitial fibrotic changes/scarring without definite superimposed consolidation. Scattered calcified granulomas. Left upper lobe nodule measures 5 mm (series 4, image 44), unchanged. Right middle lobe nodules measuring up to 5 mm (image 86), unchanged. Right lower lobe nodule measuring 5 mm (image 83), unchanged. No new pulmonary nodule or mass. No pleural effusion or pneumothorax. Chest wall and axilla: No mass or adenopathy. Bones: No acute abnormality. Diffuse osseous metastatic disease with increased sclerosis compared to prior. ABDOMEN AND PELVIS: Liver: Unremarkable. Gallbladder and bile ducts: Gallstones with nonspecific nodular appearance of the gallbladder fundus which is similar to prior. No pericholecystic fluid. No biliary dilatation. Pancreas: Unremarkable. Spleen: Unremarkable. Adrenal glands: Unremarkable. Kidneys: Bilateral renal cysts. No hydronephrosis or hydroureter. No suspicious renal lesion. No urinary calculi. GI tract: No bowel obstruction. Colonic diverticulosis without acute diverticulitis. No suspicious bowel wall thickening. No CT evidence of acute appendicitis. Vascular structures: Atherosclerotic vascular calcifications of the aorta and its major branches. Grossly patent vasculature Lymph nodes: No suspicious lymphadenopathy. Peritoneum/Retroperitoneum/Abdominal Wall: No ascites or pneumoperitoneum. Right greater than left fat containing inguinal hernias. Pelvic Organs: Normal bladder. Bones and superficial soft tissues: Diffuse osseous metastatic disease with increased sclerosis compared to prior. No acute abnormality. Procedure Note Bubba Presley MD - 09/21/2024 For Patients: As a result of the Cures Act, medical imagingexams and procedure reports are released immediately into your electronicmedical record. You may view this report before your referring provider.If you have questions, please contact your health care provider. INDICATION: Vomiting, weakness, cough. History of prostate cancer. TECHNIQUE: CT chest, abdomen and pelvis acquired 80 cc Omnipaque 350 IV contrast. COMPARISON: CT chest abdomen pelvis 06/15/2023. FINDINGS: CHEST: Cardiovascular structures: No cardiomegaly or pericardial effusion. Mainpulmonary artery normal in caliber. No obvious pulmonary embolism on thisnondedicated examination. Atherosclerotic calcifications of the aorta andits major branches. No thoracic aortic aneurysm. Mediastinum and cesar: No suspicious lymphadenopathy. Left thyroid nodulemeasuring 2.8 cm is similar to prior. Lungs and pleura: Interstitial fibrotic changes/scarring without definitesuperimposed consolidation. Scattered calcified granulomas. Left upperlobe nodule measures 5 mm (series 4, image 44), unchanged. Right middlelobe nodules measuring up to 5 mm (image 86), unchanged. Right lower lobenodule measuring 5 mm (image 83), unchanged. No new pulmonary nodule ormass. No pleural effusion or pneumothorax. Chest wall and axilla: No mass or adenopathy. Bones: No acute abnormality. Diffuse osseous metastatic disease withincreased sclerosis compared to prior. ABDOMEN AND PELVIS: Liver: Unremarkable. Gallbladder and bile ducts: Gallstones with nonspecific nodular appearanceof the gallbladder fundus which is similar to prior. No pericholecysticfluid. No biliary dilatation. Pancreas: Unremarkable. Spleen: Unremarkable. Adrenal glands: Unremarkable. Kidneys: Bilateral renal cysts. No hydronephrosis or hydroureter. Nosuspicious renal lesion. No urinary calculi. GI tract: No bowel obstruction. Colonic diverticulosis without acutediverticulitis. No suspicious bowel wall thickening. No CT evidence ofacute appendicitis. Vascular structures: Atherosclerotic vascular calcifications of the aortaand its major branches. Grossly patent vasculature Lymph nodes: No suspicious lymphadenopathy. Peritoneum/Retroperitoneum/Abdominal Wall: No ascites or pneumoperitoneum.Right greater than left fat containing inguinal hernias. Pelvic Organs: Normal bladder. Bones and superficial soft tissues: Diffuse osseous metastatic diseasewith increased sclerosis compared to prior. No acute abnormality. IMPRESSION: 1. No acute intrathoracic or intra-abdominal/pelvic pathology identified. 2. Cholelithiasis without CT evidence of acute cholecystitis. Unchangednonspecific nodular appearance of the gallbladder fundus. 3. Colonic diverticulosis without acute diverticulitis. 4. Diffuse osseous metastatic disease with increased sclerosis compared toprior. 5. Left thyroid nodule measuring 2.8 cm, grossly unchanged. Furthercharacterization with outpatient thyroid ultrasound recommended if notperformed previously. Please note that all CT scans at this facility use dose modulation,iterative reconstruction, and/or weight-based dosing when appropriate toreduce radiation dose to as low as reasonably achievable. Dictated by Bubba Presley MD @ 09/21/2024 9:28:42 PM (Electronically Signed) us Sanya Mcmillan MD CT Final Re sult * CT HEAD BRAIN WO (09/21/2024 9:07 PM [employer] DIRECTOR) Anatomical Region Laterality Modality HEAD, BRAIN Computed Tomogra phy 09/21/2024 9:18 PM [employer] DIRECTOR Impressions 09/21/2024 9:18 PM [employer] DIRECTOR 1. Decreased attenuation and loss of littlejohn-white matter differentiation in the left precentral gyrus could represent age indeterminate ischemic infarcts. 2. There is a linear transverse lucency in the dens (series 5, image 1), only seen on the last slice. If the patient has a history of recent trauma, consider CT neck for further evaluation. 3. Sclerotic changes in the skull base, particularly the clivus and mandibular condyles may represent osteoblastic metastatic disease. Please note that all CT scans at this facility use dose modulation, iterative reconstruction, and/or weight-based dosing when appropriate to reduce radiation dose to as low as reasonably achievable. Dictated by Joel Thomas MD @ 09/21/2024 9:18:36 PM (Electronically Signed) Narrative 09/21/2024 9:18 PM [employer] DIRECTOR For Patients: As a result of the Cures Act, medical imaging exams and procedure reports are released immediately into your electronic medical record. You may view this report before your referring provider. If you have questions, please contact your health care provider. INDICATION: Weakness TECHNIQUE: CT of the head without contrast. Coronal and sagittal reformats. Bone and soft tissue algorithms. COMPARISON: MRI 12/29/2020 FINDINGS: No acute intracranial hemorrhage or extra-axial collection. Decreased attenuation and loss of littlejohn-white matter differentiation in the left precentral gyrus could represent age indeterminate ischemic infarcts (series 4, image 27). No mass effect or midline shift. Moderate generalized parenchymal volume loss. Moderate regions of decreased attenuation within the periventricular and subcortical white matter of both cerebral hemispheres most likely reflect chronic microvascular ischemic disease and age related change in this patient. Vascular calcifications within the carotid siphons. Orbital contents are normal. No calvarial fractures. Scalp and other imaged soft tissue structures are normal. Mastoid air cells are clear. There is a linear transverse lucency in the dens (series 5, image 1), only seen on the last slice. If the patient has a history of recent trauma, consider CT neck for further evaluation. Leftward deviation of the nasal septum. Sclerotic changes in the skull base, particularly the clivus and mandibular condyles may represent osteoblastic metastatic disease. Procedure Note Joel Thomas MD - 09/21/2024 For Patients: As a result of the Cures Act, medical imagingexams and procedure reports are released immediately into your electronicmedical record. You may view this report before your referring provider.If you have questions, please contact your health care provider. INDICATION: Weakness TECHNIQUE: CT of the head without contrast. Coronal and sagittal reformats. Bone andsoft tissue algorithms. COMPARISON: MRI 12/29/2020 FINDINGS: No acute intracranial hemorrhage or extra-axial collection. Decreasedattenuation and loss of littlejohn-white matter differentiation in the leftprecentral gyrus could represent age indeterminate ischemic infarcts(series 4, image 27). No mass effect or midline shift. Moderate generalized parenchymal volumeloss. Moderate regions of decreased attenuation within the periventricularand subcortical white matter of both cerebral hemispheres most likelyreflect chronic microvascular ischemic disease and age related change inthis patient. Vascular calcifications within the carotid siphons. Orbital contents are normal. No calvarial fractures. Scalp and otherimaged soft tissue structures are normal. Mastoid air cells are clear.There is a linear transverse lucency in the dens (series 5, image 1), onlyseen on the last slice. If the patient has a history of recent trauma,consider CT neck for further evaluation. Leftward deviation of the nasalseptum. Sclerotic changes in the skull base, particularly the clivus andmandibular condyles may represent osteoblastic metastatic disease. IMPRESSION: 1. Decreased attenuation and loss of littlejohn-white matter differentiation inthe left precentral gyrus could represent age indeterminate ischemicinfarcts. 2. There is a linear transverse lucency in the dens (series 5, image 1),only seen on the last slice. If the patient has a history of recenttrauma, consider CT neck for further evaluation. 3. Sclerotic changes in the skull base, particularly the clivus andmandibular condyles may represent osteoblastic metastatic disease. Please note that all CT scans at this facility use dose modulation,iterative reconstruction, and/or weight-based dosing when appropriate toreduce radiation dose to as low as reasonably achievable. Dictated by Joel Thomas MD @ 09/21/2024 9:18:36 PM (Electronically Signed) us Sanya Mcmillan MD CT Final Re sult * EKG 12 LEAD (09/21/2024 7:41 PM [employer] DIRECTOR) Interpretation Poor data quality, interpretation may be adversely affected Sinus rhythm with Premature atrial complexes with Aberrant conduction Incomplete right bundle branch block Nonspecific ST abnormality Abnormal ECG BEYOND NOW Ventricular Rate 74 BPM BEYOND NOW Atrial Rate 74 BPM BEYOND NOW P-R Interval 138 ms BEYOND NOW QRS Duration 118 ms BEYOND NOW QT 456 ms BEYOND NOW QTc 506 ms BEYOND NOW P [place] -29 degrees BEYOND NOW R [place] 30 degrees BEYOND NOW T [place] -5 degrees BEYOND NOW 09/21/2024 7:41 PM [employer] DIRECTOR 09/25/2024 8:50 AM [employer] DIRECTOR us Sanya Mcmillan MD EKG ORD Final Re sult BEYOND NOW [place], [place] * COVID/FLU/RSV PANEL (09/21/2024 7:38 PM [employer] DIRECTOR) COVID 19 [facility] MOLECULAR Negative Negative 09/21/2024 9:10 PM [employer] DIRECTOR [facility] Comment:All PCR tests are ndiaye bject to false negative result due to variability in viral load and collection technique. A negative result does not rule out a SARS-CoV-2 infection. Clinical correlation required. INFLUENZA A PCR Negative 9:10 PM [employer] DIRECTOR [facility] INFLUENZA B PCR Negative 9:10 PM [employer] DIRECTOR [facility] Respiratory Syncytial Virus Negative 09/21/2024 9:10 PM [employer] DIRECTOR [facility] Swab SPECIMEN FROM NASOPHARYNGEAL STRUCTURE / Unknown Non-Blood / Unknown 09/21/2024 7:38 PM [employer] DIRECTOR 09/21/2024 7:43 PM [employer] DIRECTOR us Sanya Mcmillan MD MICROBIOLOGY Final Re sult Performing Organization Address City/[facility]/ZIP Co de Phone Number [address] [address] * (ABNORMAL) TROPONIN T (HS) ACUTE W/2HR REFLEX (09/21/2024 7:38 PM [employer] DIRECTOR) Pathologist [facility] TROPONIN T HS 28(H) 6-15 ng/L ng/L 09/21/2024 8:07 PM [employer] DIRECTOR [facility] Blood BLOOD SPECIMEN / Unknown IV Start / Unknown 09/21/2024 7:38 PM [employer] DIRECTOR 09/21/2024 7:43 PM [employer] DIRECTOR Narrative [facility] - 09/21/2024 8:07 PM [employer] DIRECTOR hs-cTnT (Elecsys Troponin T Gen 5) concentration (s) above the sex-specific 99th percentile (16 ng/L or greater for males or 11 ng/L or greater for females) are indicative of myocardial injury. If initial hs-cTnT <=100 ng/L at presentation, a 0h/2h ABSOLUTE (ng/L) delta change (rising or falling) of >=10 ng/L suggests a significant change, whereas a 0h/2h delta change <=3 ng/L suggests no significant change. If initial hs-cTnT >100 ng/L at presentation, a 0h/2h/ RELATIVE (percent, %) delta change of 20% is suggested to distinguish patients with acute vs. chronic myocardial injury. There are multiple etiologies that can cause hs-cTnT increases above the 99th percentile (myocardial injury) other than acute myocardial infarction. Clinical context and careful clinical evaluation are critical for diagnosis and risk-stratification. The diagnosis of acute myocardial infarction requires a rising and/or falling pattern in hs-cTnT concentrations with at least one value above the sex-specific 99th percentile PLUS at least one of the following clinical criteria: ischemic symptoms, new or presumed new significant ST-T wave changes or new LBBB, development of pathological Q waves, imaging evidence of new loss of viable myocardium or new regional wall motion abnormality, or identification of intracoronary atherothrombosis or an acute angiographic culprit on coronary angiography. In appropriate low-risk patients with a non-ischemic electrocardiogram without active chest pain with a symptom onset >3-hours without recurrence, a single initial hs-cTnT<6 ng/L identifies patient with a very low risk in emergency department patient population. us Sanya Mcmillan MD CHEMISTRY Final Re sult [facility] [address] [place] [id number] * PRO-BNP (09/21/2024 7:38 PM [employer] DIRECTOR) PRO-BNP 345 <450 pg/mL 09/21/2024 8:11 PM [employer] DIRECTOR [facility] Blood BLOOD SPECIMEN / Unknown IV Start / Unknown 09/21/2024 7:38 PM [employer] DIRECTOR 09/21/2024 7:43 PM [employer] DIRECTOR Narrative [facility] - 09/21/2024 8:11 PM [employer] DIRECTOR The following cut-points have been suggested for the use of proBNP for the diagnostic evaluation of heart failure (HF) in patient with acute dyspnea. Patients with eGFR >= 60 Diagnosis (rule in CHF) <50 Years Old 450 pg/mL 50 - 75 Years Old 900 pg/mL >75 Years Old 1800 pg/mL Exclusion (rule out CHF) Age Independent 300 pg/mL A cutoff of 1200 pg/mL for patients with an eGFR <60 yields a diagnostic sensitivity of 89% and specificity of 72% for acute congestive heart failure. Sanya Mcmillan MD SEND OUTS Final Re sult Performing Organization Address [facility] [place] [address] * LIPASE (09/21/2024 7:38 PM [employer] DIRECTOR) LIPASE 32.8 13.0 - 60.0 IU/L 09/21/2024 8:07 PM [employer] DIRECTOR [facility] Blood BLOOD SPECIMEN / Unknown IV Start / Unknown 09/21/2024 7:38 PM [employer] DIRECTOR 09/21/2024 7:43 PM [employer] DIRECTOR Sanya Mcmillan MD CHEMISTRY Final Re sult Performing Organization Address [facility] [place] [address] * (ABNORMAL) CK TOTAL (09/21/2024 7:38 PM [employer] DIRECTOR) CK,TOTAL 31(L) 39 - 308 IU/L 09/21/2024 8:07 PM [employer] DIRECTOR [facility] Blood BLOOD SPECIMEN / Unknown IV Start / Unknown 09/21/2024 7:38 PM [employer] DIRECTOR 09/21/2024 7:43 PM [employer] DIRECTOR us Sanya Mcmillna MD CHEMISTRY Final Re sult [facility] [address] [place] [address] * (ABNORMAL) HEPATIC FUNCTION PANEL (09/21/2024 7:38 PM [employer] DIRECTOR) ALBUMIN 4.2 4.0 - 4.9 g/dL 09/21/2024 8:07 PM [employer] DIRECTOR [facility] PROTEIN,TOTAL 7.5 6.0 - 8.0 g/dL 09/21/2024 8:07 PM [employer] DIRECTOR [facility] BILIRUBIN,TOTAL 0.5 0.0 - 1.2 mg/dL 09/21/2024 8:07 PM [employer] DIRECTOR [facility] BILIRUBIN,DIRECT 0.2 0.0 - 0.2 mg/dL 09/21/2024 8:07 PM [employer] DIRECTOR [facility] BILIRUBIN,INDIRE CT 0.3 0.2 - 0.8 mg/dL 09/21/2024 8:07 PM [employer] DIRECTOR [facility] ALK PHOSPHATASE 83 40 - 129 IU/L 09/21/2024 8:07 PM [employer] DIRECTOR [facility] ALT (SGPT) 5(L) 10 - 50 IU/L 09/21/2024 8:07 PM [facility] AST (SGOT) 21 10 - 50 IU/L 09/21/2024 8:07 PM [facility] Blood BLOOD SPECIMEN / Unknown IV Start / Unknown 09/21/2024 7:38 PM [employer] DIRECTOR 09/21/2024 7:43 PM [employer] DIRECTOR us Sanya Mcmillan MD CHEMISTRY Final Re sult [facility] [address] [place] [address] from Last 3 Months Insurance MEDICARE PART A HB ONLY [employer] MED[employer]ARE [employer]VANTAGE MR Advance Directives * DNR (Latest Code Status on File) Date Activated Date Inactivated Comments 09/22/2024 12:58 AM 09/26/2024 3:40 PM Question Answer Comments Code Status Discussion: Reviewed Preferences * Full Code Date Activated Date Inactivated Comments 07/01/2023 11:05 AM 07/03/2023 2:29 AM Question Answer Comments Code Status Discussion: Reviewed Preferences * Full Code Date Activated Date Inactivated Comments 07/01/2023 11:05 AM 07/01/2023 11:05 AM Question Answer Comments Code Status Discussion: Reviewed Preferences * Full Code Date Activated Date Inactivated Comments 07/01/2023 11:05 AM 07/01/2023 11:05 AM Question Answer Comments Code Status Discussion: Reviewed Preferences * Full Code Date Activated Date Inactivated Comments 06/03/2023 9:27 PM 06/05/2023 3:22 PM Question Answer Comments Code Status Discussion: Reviewed Preferences Care Teams Communications Tower Technician Relationship Specialty Start Date End Date Sanya Padilla MD [address] [place] [address] PCP - General Family Practice 07/05/17 Emmanuelle [place], Angelito, LP [address] [place], [place] [address] [address] Psychologist Psychology 08/26/20 Garima Velez, CHRISTOPHER [address] [place], [place] [id number] Nurse Navigator - Oncology Registered Nurse 06/21/23 Emmanuelle Soto, BUTTON BREAKER [address] [place], [place] [id number] Nurse Practitioner Hematology and Oncology 08/09/23 Daija Santillan MD [address] [place], [place] [id number] Medical Oncologist Hematology and Oncology 08/09/23 Александр Medina LGSW [address] [place], [place] [id number] Yeast Culture Developer 08/09/23 Emily Souza [address] [place] [address] Complex Care Management Care Guide 10/22/24 Dilcia Segal, STAFF REGISTERED NURSE [address] [place] [address] Complex Care Management Front Desk Specialist 10/22/24
--- OUTSIDE RECORDS SUMMARY | 2024-11-13 19:30 | XMS_ITS | Clinical Summary ---
Author Organization [facility] Address [address] [place] [address] Care Team Providers Care Weathercaster Name Role Phone Unavailable Primary Care Provider Unavailabl e Source Comments Patient records contain information from all sites at [facility]. For routine questions regarding patient records, call [phone] during business hours, M-F 8:00 AM - 5:00 PM Central Time. Record requests for emergency care only can be directed to [phone] at any time.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 Hypertension Chronic 08/24/2012 Overview (12/14/2016): HTN - Hypertension Immunizations Immunization Administration Dates Next Due Influenza, Unspecified 06/08/2012 PPSV23 01/06/2010 Family History Medical History Relation Name Comments Lung cancer Sister Lung cancer Uncle Prostate cancer Neg Hx Relation Name Status Comments Sister Uncle Social History Tobacco Use Types Packs/Day Years Used Date Smoking Tobacco: Former Cigarettes 1.5 13 1 981 - 1994 Smokeless Tobacco: Never Alcohol Use Standard Drinks/Week Comments Not Currently 0 (1 standard drink = 0.6 oz pur e alcohol) Nutrition Answer Date Recorded Nutrition: EVOO Fat Source Unknown 07/12 Nutrition: Servings of Fruits/Vegetables per Day Not on file 07/12/2023 Dental Answer Date Recorded Dental: Regular Dentist Unknown 07/12/20 Sex and Gender Information Value Date Recorded Sex Assigned at Not on file Legal Sex Male 4:50 PM ENERGY ECONOMIST Gender Identity Not on file Sexual Orientation Not on file Last Filed Vital Signs Vital Sign Reading Time Taken Comments Blood Pressure 125/51 07/26/2023 10:28 AM ENERGY ECONOMIST Pulse 65 07/26/2023 10:28 AM ENERGY ECONOMIST Temperature 35.7 C (96.2 F) 07/26/2023 10:28 AM ENERGY ECONOMIST Respiratory Rate 16 08/25/2012 4:54 PM ENERGY ECONOMIST Oxygen Saturation - - Inhaled Oxygen Concentration - - Weight 89.8 kg (198 lb) 07/26/2023 10:2 8 AM ENERGY ECONOMIST current weight 07/26/23 Height 175 cm (5' 8.9) 02/13/2014 3:27 PM CDT Body Mass Index 29.33 02/13/2014 3:27 PM CDT Plan of Treatment Health Maintenance Due Date Last Done Comments Office Visit for Blood Pressure Check / Re-check 1945 RSV vaccine - (32-36 weeks) or 60+ years (1 - 1-dose 75+ series) 2019 COVID-19 Vaccine ( season) 2024 05/06/2023, 01/04/2023, 05/13/2022, Additional history exists Influenza Vaccine (#1) 2024 , 05/13/2022, 05/07/2021, Additional history exists Depression Screening (Annual PHQ-2) 07/25/2024 Fall Risk Screen (Annual) 07/25/2024 Creatinine Level (Kidney Function Test) 2024 2023, 07/06/2023, 06/09/2023, Additional history exists Potassium Level 2024 2023, 06/24, 06/05/2023, Additional history exists Sodium Level 2024 2023, 06/24, 06/05/2023, Additional history exists DTaP,Tdap,and Td Vaccines (3 - Td or Tdap) 05/30/2029 05/30/2019, 10/16/2009 Zoster Vaccines Completed 06/22/2021, 03/26, 01/06/2010 Pneumococcal vaccine (50+ years) Completed 01/04/2023, 11/07/2015, 01/06/2010, Additional history exists HPV Vaccines Aged Out No longer eligi ble based on patient's age to complete this topic IPV Vaccines Aged Out No longer eligi ble based on patient's age to complete this topic Procedures Procedure Name Priority Date/Time Associated Diagnosis Comments BASIC METABOLIC PANEL, S/P Routine 08/25/2012 6:23 AM ENERGY ECONOMIST from Last 3 Months or Most Recently Relevant to Health Maintenance Results * (ABNORMAL) BMP (Basic Metabolic Panel) (08/25/2012 6:23 AM ENERGY ECONOMIST) Sodium, S 140 135 - 145 MMOLL POWERCHART Potassium, S 4.3 3.5 - 5.0 MMOLL POWERCHART Chloride, S 105 95 - 106 MMOLL POWERCHART CO2 Total 25 21 - 32 MMOLL POWERCHART BUN (Blood Urea Nitrogen), S 20 5 - 24 MGDL POWERCHART Creatinine 0.9 0.8 - 1.3 MGDL POWERCHART Calcium, Total, S 10.5(H) 8.4 - 10.3 MGDL POWERCHART Anion Gap 14 7 - 16 MMOLL POWERCHART HXeGFR (MDRD) >60.0 >=60.0 POWERCHART eGFR Black/ >60.0 >=60.0 POWERCHART Glucose 106 70 - 139 MGDL POWERCHART Blood 08/25/2012 6:23 AM ENERGY ECONOMIST Joselito Kapadia M.D. LAB BLOOD ADD-ON Final R esult POWERCHART from Last 3 Months or Most Recently Relevant to Health Maintenance Insurance [facility]
== END 2024-11-13 21:05 | disposition home or self-care (01) ==
PROVIDERS: Emergency Provider Student in an Organized Health Care Education/Training Program
DX: S72.111A Displaced fracture of greater trochanter of right femur, initial encounter for closed fracture (principal); S00.93XA Contusion of unspecified part of head, initial encounter; W19.XXXA Unspecified fall, initial encounter; Z79.01 Long term (current) use of anticoagulants
CPT/HCPCS: 70450; 72125; 73700; 99284; 99285